=== PATIENT | male | born 1935 | race Caucasian/White ===

== ENCOUNTER 2021-06-02 10:00 | Day surgery (SDC) | payer MEDICARE, OTHER, SELFPAY ==
[2021-06-02 10:58] VITALS: BP 165/83; PULSE 61; RESP 18; TEMP 36.6; O2SAT 98
[2021-06-02] MEDS: Tropicam./Phenyleph. (1/2.5%) 5 ML BTL OD ×3 (10:58→11:12)
--- NOTE | 2021-06-02 11:18 | W.ANESPRE ---
General Info Date of Service Date Performed: 06/02/21 Height: 5 ft 10.5 in Weight: 82.2 kg Body Mass Index (BMI): 25.6 Surgical Procedure: Operation Date: 06/02/21 13:25 Proposed Procedure Side Surgeon p Cataract Extraction with IOL Implant Right Graham Yu MD Meds Allergies and Home Medications Allergies Allergy/AdvReac Type Severity Reaction Status Date / Time Penicillins Allergy Unknown Verified 06/02/21 10:55 Home Medication Medication Instructions Recorded lorazepam 0.5 mg tablet 2.5 mg PO DIRECTED PRN 05/30/21 metoprolol succinate 50 mg 50 mg PO HS 05/30/21 tablet,extended release 24 hr Current Visit Medications: Current Medications Generic Name Dose Route Start Last Admin Trade Name Freq PRN Reason Stop Dose Admin Acetaminophen 1,000 mg 06/02/21 06:00 Acetaminophen 500 Mg Tab PO Q4H PRN PRN Miscellaneous Medication 0 ml 06/02/21 06:00 Prednisolone 1%, Moxifloxacin 0.5%, Nepafenac 0.1% 5ml Btl OD DIRECTED CAROLYNE Miscellaneous Medication 0 ml 06/02/21 06:00 06/02/21 11:12 Tropicam./Phenyleph. (1/2.5%) 5 Ml Btl OD 1 drp DIRECTED CAROLYNE Administration Tetracaine HCl 0 ml 06/02/21 06:00 Tetracaine 0.5% 4 Ml Btl OD DIRECTED CAROLYNE PFSH Active Problems Active Problems: Problem Status Onset Code Nuclear sclerotic cataract of right eye H25.11 Medical History Medical History Cataract Essential (primary) hypertension History of cardiac murmur per patient heart murmur since he was a child. History of changing pigmented skin lesion head and shoulder Irregular heart rate Prostate CA Surgical History Surgical History History of cataract surgery History of colonoscopy History of excision of pilonidal cyst History of prostatectomy History of surgical removal of skin lesion Tobacco Smoking/Tobacco Use Status: Never Alcohol Alcohol Intake: current Alcohol intake frequency: a few times a week Alcohol type: hard liquor Substance Use Substance use type: does not use Vital Signs and Lab Results Vital Signs Most Recent Vital Signs in EMR: Most Recent Vital Signs Temp Pulse Resp BP Pulse Ox 36.6 C 61 18 165/83 H 98 06/02/21 10:58 06/02/21 10:58 06/02/21 10:58 06/02/21 10:58 06/02/21 10:58 Lab Results Blood Type / Crossmatch: No Data to Display Complete Blood Count: No Data to Display Complete Metabolic Panel: No Data to Display Liver Function Panel: No Data to Display Coagulation Panel: No Data to Display Cardiac Panel: No Data to Display Arterial Blood Gas: No Data to Display Venous Blood Gas: No Data to Display Pancreas Panel: No Data to Display Thyroid Panel: No Data to Display Infectious Disease: No Data to Display Blood Cultures: No Data to Display Toxicology Panel: No Data to Display Anesthesia Assessment and Plan Anesthesia History Personal History: No History of Anesthesia Complications and Pseudocholinesterase Deficiency Family History: No Family History of Anesthesia Complications Exercise Tolerance Exercise Tolerance: Metabolic Equivalents>4 Pertinent Negatives Pertinent Negatives: No Symptoms of GERD, No Major Cardiovascular Symptoms or Complaints, No Major Pulmonary Symptoms or Complaints and No History of CVA/TIA Cardiac & Pulmonary Exam Cardiac Exam: Normal S1/S2 Heart Sounds Pulmonary Exam: Clear Bilateral Breath Sounds Implantable Cardiac Device Does patient have a Pacemaker or an ICD?: No Airway Exam Known Difficult Airway: No Mallampati Class: 3 Mouth Opening: Normal (> 3cm) Thyromental Distance: Greater than 3 cm Neck Range of Motion: Full ROM Neck Circumference: Normal Teeth Condition: Normal Dentition and Removable Dentures/Plates Upper ASA Classification ASA Score: ASA 2 Emergency Case?: No NPO Status NPO Status: NPO Clears >2 hours, Solids >8 hours Anesthesia Plan Resuscitation Status: Full Code Anesthesia Technique: MAC Anesthesia Airway Planned: Natural Airway Monitors Used: Standard Monitors
[2021-06-02 11:19] VITALS: BMI 25.6
[2021-06-02] MEDS: Balanced Salt Soln.-PLUS 500 ML BAG (12:11)
[2021-06-02] MEDS: Tetracaine 0.5% 4 ML BTL OD (12:11)
[2021-06-02] MEDS: Lidocaine 2% Jelly 6 ML SYR (12:12)
[2021-06-02] MEDS: Duovisc Viscoelastic System EACH 1 EACH (12:13)
[2021-06-02] MEDS: Povidone-Iodine Ophth 30 ML BTL (12:13)
[2021-06-02 12:31] VITALS: BP 170/80; PULSE 60; RESP 16; TEMP 36.6; O2SAT 100
--- NOTE | 2021-06-02 12:32 | W.PM.DSUDISC ---
Discharge Plan Disposition Patient Disposition: HOME Condition: Good Discharge Details Attending Provider: Graham Yu Primary Care Provider: Mina Shepard Home Meds and New Rx's Prescriptions: No Action lorazepam 0.5 mg Tablet 2.5 mg PO DIRECTED [id number] Label Comments: 1/2 tab 30 minutes prior to dental work metoprolol succinate 50 mg Tablet Extended Release 24 Hr 50 mg PO HS 0RF Discharge Instructions Stand Alone Forms: Post-op Topical Cataract, Anastasiia Resendez (DSU) Discharge Orders Discharge Orders: Discharge Order (Routine); Ordered 06/02/21 Ordered By: Graham Yu DS: Diagnosis Discharge Diagnosis (1) Nuclear sclerotic cataract of right eye: Status: Resolved
--- NOTE | 2021-06-02 12:34 | ROE_ITS ---
Date of service: 06/02/21 Time of Service: 12:34 Operative Note Operative Note DATE OF PROCEDURE: 06/02/21 PRE-OP DIAGNOSIS: Nuclear cataract, right eye Poorly dilating pupil, right eye POST-OP DIAGNOSIS: same PROCEDURE: 1. Cataract extraction by phacoemulsification with intraocular lens implantation, right eye, with pupillary expansion device SURGEON: Graham Yu ANESTHESIA TYPE: Local By Surgeon and MAC Refer to Anesthesia Record PATHOLOGY: none sent COMPLICATIONS: None Patient was transported to: same day Patient's condition: stable Implants: [employer] / [employer] Tecnis [id number] Indications: Progressive decreased vision due to cataract, right eye, with poorly dilating pupil Procedure Description: CATARACT SURGERY OPERATIVE REPORT PREOPERATIVE DIAGNOSIS: 1. Nuclear cataract, right eye 2. Poorly dilating pupil, right eye POSTOPERATIVE DIAGNOSIS: Same OPERATION: 1. Cataract extraction using phacoemulsification with posterior chamber intraocular lens implant, right eye. 2. Pupillary dilation and iris stabilization using Malyugin Ring IOL: IOL Resource Management Planner/Model: Sonido [employer] Sonido / PORTILLO Tecnis [id number] IOL Power: + 23.0 diopters IOL Serial Number: [id number] Optic Diameter: 6.0mm Haptic/Overall Diameter: 13.0mm PHACO INFO: Elvin Breezeplayurion Vision System with OZil and Active Fluidics Cumulative Dispersed Energy (CDE): 11.02 seconds SURGEON: Graham Yu MD, SONI ANESTHESIA: Monitored Anesthesia Care (MAC), with local sub-tenon's anesthetic infiltration COMPLICATIONS: None SPECIMENS: None INDICATIONS FOR PROCEDURE: The patient is an 85-year-old gentleman with history of diminished visual acuity in his right eye secondary to the development of nuclear cataracts. He is significantly symptomatic that he desires cataract surgery and attempt to improve and maximize his vision. PROCEDURE: The correct surgical eye was identified and marked as the right eye and the pupil was dilated in the preoperative area using mydriatics and cycloplegics. The dilated pupil size was 4.0 mm. He elected to proceed without oral sedation. The patient was brought to the operating room where cardiopulmonary monitoring was instituted and surgical time-out was performed, confirming the correct operative eye and IOL power. Topical anesthesia was administered and ophthalmic povidone-iodine 5% was instilled into the conjunctival fornices. Lidocaine gel was applied to the cornea and the shraddha-ocular area was prepped with Betadine 10% solution and draped in the usual sterile fashion for intraocular surgery, including an aperture drape. A Tegaderm transparent film dressing was cut in half and used to cover the lashes and lid margins. Care was taken to sequester the lashes and lid margins under the Tegaderm dressing. A lid speculum was placed between the lids of the operative eye and the Elvin [employer] Rev[employer] operating microscope was maneuvered into position. Kami scissors were then used to make a conjunctival buttonhole approximately 6mm posterior to the limbus in the inferonasal quadrant. Blunt dissection was carried out to expose bare sclera, and a blunt-tipped sub-tenon?s anesthesia cannula was introduced and passed posteriorly along the globe where non- preserved plain lidocaine was injected into posterior sub-Tenon?s space. A sideport knife was used to make a paracentesis port inferiortemporally. Intraocular phenylephrine/lidocaine was injected in the anterior chamber. The anterior chamber was filled with viscoelastic. A 2.4mm keratome knife was used to create a half-thickness groove at the limbus and then to construct a three-plane near-clear corneal tunnel extending 2.0mm into clear cornea superiortemporally. A 7.0 mm Malyugin Ring was then inserted into the pupillary space and engaged with the Kuglen hook. A flap was raised on the anterior capsule and capsulorhexis forceps were used to complete a continuous curvilinear capsulorhexis of 5.5 mm. Balanced salt solution was then used to perform cortical cleaving hydrodissec tion and nuclear hydrodelineation until the lens could be freely rotated within the capsular bag. The lens nucleus was then disassembled and removed within the capsular bag and iris plane using phacoemulsification. Residual cortical material was removed using the 45-degree angled silicone I/A tip with 0.3mm port. The posterior capsule was carefully polished to remove as much residual lens epithelial cells as safely possible. The capsular bag was then inflated and the anterior chamber deepened with viscoelastic. The lens implant described above was inserted into the capsular bag using the PORTILLO [place] Injector. A Kuglen hook was used to dial the IOL into position. The Malyugin Ring was removed in the reverse order of its insertion. Residual viscoelastic was then removed first from posterior to the IOL, then from the anterior chamber using the I/A handpiece. The lens implant was noted to center nicely within the capsular bag. The incisions were stromally hydrated, and the anterior chamber was reformed using BSS. Then 0.5cc of moxifloxacin 1.0mg/ml were injected into the capsular bag and anterior chamber. The incisions were checked with a Weck spear and found to be secure. Several drops of ophthalmic povidone-iodine 5% were then applied to the eye followed by two drops of Imprimis combination prednisolone/moxifloxacin/nepafenac solution. The drapes were removed and a clear plastic protective eye shield was placed over the eye. The patient was then returned to Same Day Surgery in stable condition.
--- NOTE | 2021-06-02 12:54 | W.ANESPOSTOP ---
Postoperative Evaluation Date, Time and Location Date Performed: 06/02/21 Time Performed: 12:54 Patient Location: Day Surgery Unit Vital Signs Most Recent Imported Vital Signs: Most Recent Vital Signs Temp Pulse Resp BP Pulse Ox 36.6 C 60 16 170/80 H 100 06/02/21 12:31 06/02/21 12:31 06/02/21 12:31 06/02/21 12:31 06/02/21 12:31 Pain Score Most Recent Pain Score: Most Recent Pain Score Pain Level 0 06/02/21 12:31 Assessment Mental Status: Awake (Alert & Oriented to Patient Baseline) Airway and Respiratory Function: Patent airway with normal (patient baseline) respiratory exam Cardiovascular Function: Hemodynamically Stable Hydration Status: Adequately Hydrated Nausea & Vomiting: No Nausea or Vomiting Pain: Pt. Denies Any Pain Peripheral Nerve Block: Patient did not receive a nerve block
== END 2021-06-02 13:15 | disposition home or self-care (01) ==
PROVIDERS: PCP Physician Assistant Medical; Visit Provider Ophthalmology
PROC: (CPT 66982; principal; 2021-06-02 13:15)
DX: H25.11 Age-related nuclear cataract, right eye (principal); H57.03 Miosis; I10 Essential (primary) hypertension
CPT/HCPCS: 66982; V2632

== ENCOUNTER → 2023-08-16 08:49 | Outpatient (BNVA) | payer MEDICARE, OTHER, SELFPAY | PROVIDERS: PCP Physician Assistant Medical; Referring Provider Physician Assistant Medical; Visit Provider Nurse Practitioner Gerontology | DX: C61 Malignant neoplasm of prostate (principal); N43.3 Hydrocele, unspecified; Z80.42 Family history of malignant neoplasm of prostate | CPT/HCPCS: 51798; 81003; 99205 ==

== ENCOUNTER → 2025-01-09 10:20 | Outpatient (BNVA) | payer MEDICARE, OTHER, SELFPAY | PROVIDERS: PCP Physician Assistant; Referring Provider Physician Assistant; Visit Provider Podiatrist | DX: L97.512 Non-pressure chronic ulcer of other part of right foot with fat layer exposed (principal); I83.013 Varicose veins of right lower extremity with ulcer of ankle; L03.115 Cellulitis of right lower limb; R60.0 Localized edema; I89.0 Lymphedema, not elsewhere classified; R09.89 Other specified symptoms and signs involving the circulatory and respiratory systems; I87.2 Venous insufficiency (chronic) (peripheral) | CPT/HCPCS: 11042; 29581 ==

== ENCOUNTER 2025-01-09 11:52 | Outpatient (REF) | payer MEDICARE, OTHER, SELFPAY | END 2025-01-09 11:53 | disposition home or self-care (01) | LOC: LBN 11:52 | PROVIDERS: PCP Physician Assistant; Visit Provider Podiatrist | DX: L97.319 Non-pressure chronic ulcer of right ankle with unspecified severity (principal) | CPT/HCPCS: 87077; 87070; 87075; 87186; 87205 ==